=== PATIENT | female | born 1965 | race Caucasian/White ===

== ENCOUNTER 2020-08-02 08:40 | Inpatient (IN) ==
[2020-08-02] MEDS ORDERED: Orphenadrine 60 MG/2 ML VIAL IVP ONE (08:59)
[2020-08-02] MEDS ORDERED: Morphine Sulfate 2 MG/ML SYRINGE IVP ONE (08:59)
[2020-08-02 09:11] LABS: Basophils % 0.2 %; Hematocrit 56.7 % (35.3-44.9); Hemoglobin 18.7 g/dL (11.5-15.4); Immature Granulocytes % 0.6 % (0-4); Lymphocytes # 0.4 K/mcL (0.6-4.6); Lymphocytes % 8.4 %; Mean Corpuscular Hemoglobin 31.1 pg (28.0-33.3); Mean Corpuscular Volume 94.2 fL (83.0-100.0); Mean Platelet Volume 10.2 fL (9.4-12.4); Monocytes % 0.6 %; Neutrophils # 4.3 K/mcL (1.6-8.9); Platelet Count 181 K/mcL (140-400); Red Blood Count 6.02 M/mcL (3.82-4.97); Red Cell Distribution Width 12.6 % (11.5-14.5); Segmented Neutrophils % 90.2 %; White Blood Count 4.8 K/mcL (4.3-11.1)
[2020-08-02 09:18] LABS: Prothrombin Time 12.1 Seconds (9.4-12.1)
[2020-08-02 09:21] LABS: Activated Partial Thrombo Time 24.6 Seconds (26.0-36.0)
[2020-08-02] MEDS ORDERED: Isovue-370 500 ML BOTTLE IVP ONE (09:31)
[2020-08-02 09:32] LABS: Alanine Aminotransferase 11 Units/L (7-52); Albumin 3.9 g/dL (3.5-5.7); Albumin/Globulin Ratio 1.6 (1.1-2.2); Alkaline Phosphatase 78 Units/L (34-104); Aspartate Amino Transferase 15 Units/L (13-39); BUN/Creatinine Ratio 24 (6-26); Bilirubin,Total 0.8 mg/dL (0.3-1.0); Blood Urea Nitrogen 21 mg/dL (6-20); Calcium 9.2 mg/dL (8.6-10.3); Carbon Dioxide 27 mEq/L (23-29); Chloride 106 mEq/L (98-107); Globulin 2.4 g/dL (2.4-3.5); Glucose 207 mg/dL (70-105); Osmolality,Calculated 299 (280-300); Potassium 4.2 mEq/L (3.5-5.1); Sodium 140 mEq/L (136-145); Total Protein 6.3 g/dL (6.4-8.9); Troponin I < 0.03 ng/mL (< 0.04); eGFR For African Americans > 60 (> 60); eGFR For Non-African Americans > 60 (> 60)
[2020-08-02] MEDS ORDERED: Azithromycin 500 MG in 0.9 % Sodium Chloride 250 ML IVPB ONE (10:23)
[2020-08-02] MEDS ORDERED: cefTRIAXone 1,000 MG in Water for inj. (sterile) 10 ML IVP ONE (10:23)
[2020-08-02] MEDS ORDERED: Ondansetron 4 MG/2 ML VIAL IVP PRN (11:13)
[2020-08-02] MEDS ORDERED: Naloxone 0.4 MG/ML INJ IVP PRN (11:13)
[2020-08-02] MEDS ORDERED: *HR* Labetalol 20 MG/4 ML SYRINGE IVP PRN (11:15)
[2020-08-02] MEDS ORDERED: Ipratropium/Albuterol Neb 3 ML IH PRN (11:15)
[2020-08-02] MEDS: traZODone 50 MG TABLET PO SCH (20:27)
[2020-08-02] MEDS: tiZANidine 4 MG TABLET PO SCH (20:27)
[2020-08-02] MEDS ORDERED: ARIPiprazole 2 MG TABLET PO SCH (21:00)
[2020-08-03 02:36] LABS: Basophils # 0.1 K/mcL (0.0-0.2); Basophils % 0.7 %; Eosinophils # 0.4 K/mcL (0.0-0.6); Eosinophils % 4.1 %; Hematocrit 46.7 % (35.3-44.9); Immature Granulocytes % 0.5 % (0-4); Lymphocytes # 1.7 K/mcL (0.6-4.6); Lymphocytes % 19.1 %; Mean Corpuscular HGB Conc 33.2 g/dL (31.6-35.5); Mean Corpuscular Hemoglobin 31.3 pg (28.0-33.3); Mean Corpuscular Volume 94.3 fL (83.0-100.0); Mean Platelet Volume 10.6 fL (9.4-12.4); Monocytes # 0.6 K/mcL (0.0-1.3); Monocytes % 6.3 %; Neutrophils # 6.1 K/mcL (1.6-8.9); Platelet Count 174 K/mcL (140-400); Red Blood Count 4.95 M/mcL (3.82-4.97); Red Cell Distribution Width 12.9 % (11.5-14.5); Segmented Neutrophils % 69.3 %
[2020-08-03 02:38] LABS: Hemoglobin 15.5 g/dL (11.5-15.4); White Blood Count 8.8 K/mcL (4.3-11.1)
[2020-08-03 03:11] LABS: BUN/Creatinine Ratio 29 (6-26); Blood Urea Nitrogen 22 mg/dL (6-20); Calcium 8.5 mg/dL (8.6-10.3); Carbon Dioxide 28 mEq/L (23-29); Chloride 105 mEq/L (98-107); Glucose 111 mg/dL (70-105); Magnesium 2.1 mg/dL (1.6-2.6); Osmolality,Calculated 290 (280-300); Potassium 3.5 mEq/L (3.5-5.1); Sodium 138 mEq/L (136-145); eGFR For African Americans > 60 (> 60); eGFR For Non-African Americans > 60 (> 60)
[2020-08-03] MEDS: *HR* Enoxaparin 40 MG/0.4 ML SYRINGE SQ SCH (05:43)
[2020-08-03] MEDS: Levothyroxine 25 MCG TABLET PO SCH (05:43)
[2020-08-03] MEDS: hydroCHLOROthiazide 25 MG TABLET PO SCH (09:40)
[2020-08-03] MEDS: Aspirin Enteric Coated 81 MG Tablet PO SCH (09:41)
[2020-08-03] MEDS: tiZANidine 4 MG TABLET PO SCH (09:41)
[2020-08-03] MEDS: Azithromycin 500 MG in 0.9 % Sodium Chloride 250 ML IVPB SCH (09:42)
[2020-08-03] MEDS: cefTRIAXone 1,000 MG in 0.9 % Sodium Chloride Mini Bag 100 ML IVP SCH (09:43)
[2020-08-03] MEDS: ARIPiprazole 5 MG TABLET PO SCH (09:53)
[2020-08-03] MEDS: atenoloL 50 MG TABLET PO SCH (09:53)
[2020-08-03] MEDS ORDERED: *HR* HYDROcodone/Acet 5/325 mg TABLET PO PRN (13:23)
[2020-08-03] MEDS ORDERED: tiZANidine 4 MG TABLET PO PRN (14:30)
[2020-08-03] MEDS: traZODone 50 MG TABLET PO SCH (20:35)
[2020-08-03] MEDS ORDERED: Isovue-370 500 ML BOTTLE IVP ONE (23:11)
[2020-08-04] MEDS: Levothyroxine 25 MCG TABLET PO SCH (04:42)
[2020-08-04] MEDS: *HR* Enoxaparin 40 MG/0.4 ML SYRINGE SQ SCH (04:43)
[2020-08-04 09:14] LABS: Basophils % 0.3 %; Eosinophils # 0.3 K/mcL (0.0-0.6); Eosinophils % 4.8 %; Hematocrit 53.8 % (35.3-44.9); Immature Granulocytes % 0.3 % (0-4); Lymphocytes # 1.2 K/mcL (0.6-4.6); Lymphocytes % 19.9 %; Mean Corpuscular HGB Conc 33.1 g/dL (31.6-35.5); Mean Corpuscular Hemoglobin 30.5 pg (28.0-33.3); Mean Corpuscular Volume 92.3 fL (83.0-100.0); Mean Platelet Volume 10.7 fL (9.4-12.4); Monocytes # 0.4 K/mcL (0.0-1.3); Neutrophils # 4.1 K/mcL (1.6-8.9); Platelet Count 187 K/mcL (140-400); Red Blood Count 5.83 M/mcL (3.82-4.97); Red Cell Distribution Width 12.9 % (11.5-14.5); Segmented Neutrophils % 68.7 %
[2020-08-04 09:20] LABS: Hemoglobin 17.8 g/dL (11.5-15.4)
[2020-08-04] MEDS: ARIPiprazole 5 MG TABLET PO SCH (09:25)
[2020-08-04] MEDS: hydroCHLOROthiazide 25 MG TABLET PO SCH (09:25)
[2020-08-04] MEDS: atenoloL 50 MG TABLET PO SCH (09:25)
[2020-08-04] MEDS: Aspirin Enteric Coated 81 MG Tablet PO SCH (09:25)
[2020-08-04] MEDS: Azithromycin 500 MG in 0.9 % Sodium Chloride 250 ML IVPB SCH (09:26)
[2020-08-04] MEDS: cefTRIAXone 1,000 MG in 0.9 % Sodium Chloride Mini Bag 100 ML IVP SCH (09:26)
[2020-08-04 09:32] LABS: BUN/Creatinine Ratio 28 (6-26); Blood Urea Nitrogen 22 mg/dL (6-20); Calcium 9.7 mg/dL (8.6-10.3); Carbon Dioxide 28 mEq/L (23-29); Chloride 103 mEq/L (98-107); Glucose 122 mg/dL (70-105); Magnesium 2.2 mg/dL (1.6-2.6); Osmolality,Calculated 293 (280-300); Potassium 3.8 mEq/L (3.5-5.1); Sodium 139 mEq/L (136-145); eGFR For African Americans > 60 (> 60); eGFR For Non-African Americans > 60 (> 60)
[2020-08-04 09:45] LABS: Thyroid Stimulating Hormone 3.366 mcIU/mL (0.340-5.600)
[2020-08-04 11:09] LABS: Estimated Average Glucose 166 mg/dl
[2020-08-05 01:06] LABS: Basophils # 0.1 K/mcL (0.0-0.2); Basophils % 0.9 %; Eosinophils # 0.3 K/mcL (0.0-0.6); Eosinophils % 5.6 %; Hematocrit 49.5 % (35.3-44.9); Hemoglobin 16.5 g/dL (11.5-15.4); Immature Granulocytes % 0.4 % (0-4); Lymphocytes # 1.5 K/mcL (0.6-4.6); Mean Corpuscular HGB Conc 33.3 g/dL (31.6-35.5); Mean Corpuscular Hemoglobin 31.4 pg (28.0-33.3); Mean Corpuscular Volume 94.1 fL (83.0-100.0); Mean Platelet Volume 10.3 fL (9.4-12.4); Monocytes # 0.6 K/mcL (0.0-1.3); Monocytes % 9.8 %; Neutrophils # 3.3 K/mcL (1.6-8.9); Platelet Count 159 K/mcL (140-400); Red Blood Count 5.26 M/mcL (3.82-4.97); Red Cell Distribution Width 12.7 % (11.5-14.5); Segmented Neutrophils % 57.3 %; White Blood Count 5.7 K/mcL (4.3-11.1)
[2020-08-05 01:21] LABS: BUN/Creatinine Ratio 39 (6-26); Blood Urea Nitrogen 26 mg/dL (6-20); Calcium 9.2 mg/dL (8.6-10.3); Carbon Dioxide 27 mEq/L (23-29); Chloride 106 mEq/L (98-107); Glucose 142 mg/dL (70-105); Magnesium 2.1 mg/dL (1.6-2.6); Osmolality,Calculated 295 (280-300); Potassium 3.6 mEq/L (3.5-5.1); Sodium 139 mEq/L (136-145); eGFR For African Americans > 60 (> 60); eGFR For Non-African Americans > 60 (> 60)
[2020-08-05] MEDS: traZODone 50 MG TABLET PO SCH (03:31)
[2020-08-05] MEDS: Levothyroxine 25 MCG TABLET PO SCH (06:37)
[2020-08-05] MEDS: *HR* Enoxaparin 40 MG/0.4 ML SYRINGE SQ SCH (06:37)
[2020-08-05 07:13] VITALS: BP 100/62
[2020-08-05] MEDS: Aspirin Enteric Coated 81 MG Tablet PO SCH (08:02)
[2020-08-05] MEDS: ARIPiprazole 5 MG TABLET PO SCH (08:02)
[2020-08-05] MEDS: Azithromycin 500 MG in 0.9 % Sodium Chloride 250 ML IVPB SCH (08:03)
[2020-08-05] MEDS: atenoloL 50 MG TABLET PO SCH (08:06)
[2020-08-05] MEDS: hydroCHLOROthiazide 25 MG TABLET PO SCH (08:10)
[2020-08-05] MEDS: cefTRIAXone 1,000 MG in 0.9 % Sodium Chloride Mini Bag 100 ML IVP SCH (09:34)
== END 2020-08-05 11:04 | disposition home or self-care (01) | DRG 193 ==
LOC: 2ANU 08:40 → EMEROOARM 08:40 → SUATTDRO 11:42 → 2ANU 12:28
PROVIDERS: ADMIT Internal Medicine; ATTEND Pharmacist

== ENCOUNTER 2020-12-10 18:56 | Observation (INO) ==
[2020-12-10] MEDS ORDERED: Isovue-370 500 ML BOTTLE IVP ONE (19:25)
[2020-12-10 19:27] LABS: Basophils % 0.9 %; Eosinophils % 0.2 %; Hemoglobin 21.2 g/dL (11.5-15.4); Immature Granulocytes % 0.2 % (0-4); Lymphocytes # 0.6 K/mcL (0.6-4.6); Lymphocytes % 12.8 %; Mean Corpuscular HGB Conc 33.6 g/dL (31.6-35.5); Mean Corpuscular Hemoglobin 30.8 pg (28.0-33.3); Mean Corpuscular Volume 91.7 fL (83.0-100.0); Mean Platelet Volume 10.1 fL (9.4-12.4); Monocytes # 0.1 K/mcL (0.0-1.3); Monocytes % 1.1 %; Neutrophils # 3.9 K/mcL (1.6-8.9); Nucleated Red Blood Cells 0.6 /100 WBC (0); Platelet Count 170 K/mcL (140-400); Red Blood Count 6.88 M/mcL (3.82-4.97); Red Cell Distribution Width 12.4 % (11.5-14.5); Segmented Neutrophils % 84.8 %; White Blood Count 4.6 K/mcL (4.3-11.1)
[2020-12-10 19:29] LABS: Hematocrit 63.1 % (35.3-44.9)
[2020-12-10 19:51] LABS: Calcium 9.2 mg/dL (8.6-10.3); Potassium 3.9 mEq/L (3.5-5.1); Troponin I 0.04 ng/mL (< 0.04)
[2020-12-10] MEDS ORDERED: Aspirin 325 MG TABLET PO ONE (21:17)
[2020-12-10] MEDS ORDERED: 0.9 % Sodium Chloride 1,000 ML IVC ONE (21:19)
[2020-12-10 22:07] LABS: INR 1.1; Prothrombin Time 12.2 Seconds (9.4-12.1)
[2020-12-10 22:09] LABS: Activated Partial Thrombo Time 26.4 Seconds (26.0-36.0)
[2020-12-10 22:21] LABS: Potassium,Urine 88.3 mEq/L; Protein/Creatinine Ratio,Urine 0.23 mg/mg (0.00-0.20); Sodium, Urine 24.9 mEq/L
[2020-12-10 22:26] LABS: Bilirubin,Urine Negative (Negative); Blood,Urine Trace (Negative); Clarity,Urine Clear (Clear); Color,Urine Yellow (Yellow); Glucose,Urine (UA) 50 mg/dL (Normal); Ketones,Urine Negative (Negative); Leukocyte Esterase,Urine Negative (Negative); Mucus,Urine Few per lpf (None-Few); Nitrite,Urine Negative (Negative); Protein,Urine 30 mg/dL (Neg-Trace); Specific Gravity,Urine > 1.030 (1.010-1.025); Squamous Epithelial Cell,Urine Few per hpf (None-Few); Urobilinogen,Urine Normal (Normal); WBC,Urine 0-3 per hpf (0-3)
[2020-12-10] MEDS ORDERED: Naloxone 0.4 MG/ML INJ IVP PRN (22:38)
[2020-12-10] MEDS ORDERED: D5% in Water 1,000 ML IVC PRN (22:38)
[2020-12-10] MEDS ORDERED: Acetaminophen 325 MG TABLET PO PRN (22:38)
[2020-12-10] MEDS ORDERED: Dextrose Gel 15 GM/37.5 ML TUBE PO PRN ×2 (22:38)
[2020-12-10] MEDS ORDERED: *HR* Dextrose 50 % in Water (Vial) 50 ML VIAL IVP PRN (22:38)
[2020-12-10] MEDS ORDERED: Ondansetron 4 MG/2 ML VIAL IVP PRN (22:38)
[2020-12-10 22:40] LABS: Adenovirus Not Detected (Not Detect); Bordetella Pertussis Not Detected (Not Detect); Chlamydophila pneumoniae Not Detected (Not Detect); Coronavirus 229E Not Detected (Not Detect); Coronavirus HKU1 Not Detected (Not Detect); Coronavirus NL63 Not Detected (Not Detect); Coronavirus OC43 Not Detected (Not Detect); Human Metapneumovirus Not Detected (Not Detect); Human Rhinovirus/Enterovirus Not Detected (Not Detect); Influenza A Subtype 2009 H1 Not Detected (Not Detect); Influenza B Not Detected (Not Detect); Mycoplasma pneumoniae Not Detected (Not Detect); Parainfluenza Virus 1 Not Detected (Not Detect); Parainfluenza Virus 2 Not Detected (Not Detect); Parainfluenza Virus 3 Not Detected (Not Detect); Parainfluenza Virus 4 Not Detected (Not Detect); Respiratory Syncytial Virus Not Detected (Not Detect); SARS-CoV-2 Not Detected (Not Detect)
[2020-12-10] MEDS ORDERED: Perflutren Lipid Microsphere 1.3 ML in 0.9 % Sodium Chloride 8.7 ML IVP PRN (22:40)
[2020-12-10 22:44] LABS: Albumin 3.7 g/dL (3.5-5.7); Albumin/Globulin Ratio 1.4 (1.1-2.2); Bilirubin,Direct 0.1 mg/dL (0.0-0.2); Bilirubin,Indirect 0.3 mg/dL (0.0-1.0); Bilirubin,Total 0.4 mg/dL (0.3-1.0); Globulin 2.7 g/dL (2.4-3.5); Total Protein 6.4 g/dL (6.4-8.9)
[2020-12-10] MEDS ORDERED: tiZANidine 4 MG TABLET PO PRN (22:52)
[2020-12-10] MEDS ORDERED: 0.9 % Sodium Chloride 1,000 ML IVC SCH (23:15)
[2020-12-10 23:33] LABS: Magnesium 1.8 mg/dL (1.6-2.6); Phosphorous 3.5 mg/dL (2.7-4.5)
[2020-12-11 00:27] LABS: Hematocrit 52.7 % (35.3-44.9); Mean Corpuscular HGB Conc 34.2 g/dL (31.6-35.5); Mean Corpuscular Hemoglobin 32.3 pg (28.0-33.3); Mean Corpuscular Volume 94.4 fL (83.0-100.0); Mean Platelet Volume 10.6 fL (9.4-12.4); Platelet Count 147 K/mcL (140-400); Red Blood Count 5.58 M/mcL (3.82-4.97); Red Cell Distribution Width 12.2 % (11.5-14.5); White Blood Count 10.7 K/mcL (4.3-11.1)
[2020-12-11 00:44] LABS: BUN/Creatinine Ratio 27 (6-26); Blood Urea Nitrogen 27 mg/dL (6-20); Calcium 8.2 mg/dL (8.6-10.3); Carbon Dioxide 18 mEq/L (23-29); Chloride 106 mEq/L (98-107); Cholesterol 208 mg/dL (< 200); Glucose 389 mg/dL (70-105); HDL Cholesterol 26 mg/dL (40-59); LDL Cholesterol,Calculated 108 mg/dL (< 100); Osmolality,Calculated 303 (280-300); Potassium 3.6 mEq/L (3.5-5.1); Sodium 136 mEq/L (136-145); Triglycerides 369 mg/dL (< 150); eGFR For African Americans > 60 (> 60); eGFR For Non-African Americans 58 (> 60)
[2020-12-11] MEDS: ARIPiprazole 5 MG TABLET PO SCH ×2 (00:50→22:11)
[2020-12-11] MEDS: clonazePAM 0.5 MG TABLET PO PRN ×2 (00:50→22:11)
[2020-12-11] MEDS: *HR* Heparin 5,000 UNIT/ML VIAL SQ SCH ×4 (00:52→22:10)
[2020-12-11 00:55] LABS: Lymphocytes # 1.3 K/mcL (0.6-4.6); Monocytes # 0.9 K/mcL (0.0-1.3); Neutrophils # 8.1 K/mcL (1.6-8.9); Platelet Estimate Normal (Normal); Reactive Lymphocytes Present (Not Present); Toxic Granulation Present (Not Present)
[2020-12-11] MEDS: Insulin LISPRO 300 UNITS/3 ML VIAL SUBQ SCH ×5 (00:55→22:10)
[2020-12-11 06:18] LABS: Immature Reticulocyte % 8.2 % (11.0-38.0); Retculocyte # 0.08 M/mcL (0.05-0.10); Reticulocyte % 1.5 % (1.6-2.8)
[2020-12-11] MEDS: Levothyroxine 25 MCG TABLET PO SCH (06:38)
[2020-12-11] MEDS: levoFLOXacin 750 MG/150 ML 750 MG/150 ML BAG IVPB SCH (06:43)
[2020-12-11] MEDS: Aspirin Enteric Coated 81 MG Tablet PO SCH (07:45)
[2020-12-11] MEDS: atenoloL 50 MG TABLET PO SCH (08:46)
[2020-12-11 09:00] LABS: Estimated Average Glucose 183 mg/dl
[2020-12-11] MEDS ORDERED: *HR* Propofol 200 MG/20 ML VIAL IVP ONE (11:28)
[2020-12-11] MEDS ORDERED: Ondansetron 4 MG/2 ML VIAL IVP PRN (12:04)
[2020-12-11] MEDS ORDERED: *HR* FentaNYL (PF) 100 MCG/2 ML VIAL IVP PRN (12:04)
[2020-12-11] MEDS ORDERED: Ondansetron 4 MG/2 ML VIAL ONE (12:14)
[2020-12-11] MEDS ORDERED: Lidocaine -MPF 4% 5 ML AMPUL ONE (12:14)
[2020-12-11] MEDS ORDERED: Dexamethasone 4 MG/ML VIAL ONE (12:14)
[2020-12-11] MEDS ORDERED: *HR* Succinylcholine 200 MG/10 ML VIAL IVP ONE (12:14)
[2020-12-11] MEDS: Ringers Solution, Lactated 1,000 ML IVC SCH (13:00)
[2020-12-12 03:23] LABS: Hematocrit 48.5 % (35.3-44.9); Hemoglobin 16.6 g/dL (11.5-15.4); Immature Platelets 4.8 % (1.1-6.1); Mean Corpuscular HGB Conc 34.2 g/dL (31.6-35.5); Mean Corpuscular Hemoglobin 31.9 pg (28.0-33.3); Mean Corpuscular Volume 93.1 fL (83.0-100.0); Mean Platelet Volume 10.6 fL (9.4-12.4); Red Blood Count 5.21 M/mcL (3.82-4.97); Red Cell Distribution Width 12.1 % (11.5-14.5); White Blood Count 9.1 K/mcL (4.3-11.1)
[2020-12-12 03:42] LABS: BUN/Creatinine Ratio 30 (6-26); Blood Urea Nitrogen 20 mg/dL (6-20); Calcium 8.7 mg/dL (8.6-10.3); Carbon Dioxide 23 mEq/L (23-29); Chloride 106 mEq/L (98-107); Glucose 207 mg/dL (70-105); Osmolality,Calculated 291 (280-300); Potassium 4.2 mEq/L (3.5-5.1); Sodium 136 mEq/L (136-145); eGFR For African Americans > 60 (> 60); eGFR For Non-African Americans > 60 (> 60)
[2020-12-12] MEDS: levoFLOXacin 750 MG/150 ML 750 MG/150 ML BAG IVPB SCH (05:59)
[2020-12-12] MEDS: Levothyroxine 25 MCG TABLET PO SCH (06:00)
[2020-12-12] MEDS: *HR* Heparin 5,000 UNIT/ML VIAL SQ SCH ×2 (06:01→15:00)
[2020-12-12] MEDS: Insulin LISPRO 300 UNITS/3 ML VIAL SUBQ SCH ×2 (07:59→12:27)
[2020-12-12] MEDS: Aspirin Enteric Coated 81 MG Tablet PO SCH (07:59)
[2020-12-12] MEDS: atenoloL 50 MG TABLET PO SCH (08:08)
[2020-12-12 11:51] VITALS: BP 111/68
[2020-12-12] MEDS: Ringers Solution, Lactated 1,000 ML IVC SCH (12:24)
[2020-12-12 12:40] LABS: Source of Body Fluid rt.middle lobe bal
[2020-12-12 14:55] LABS: Appearance of Body Fluid Clear (Clear); Volume of Body Fluid 9 mL
[2020-12-12 14:56] LABS: Appearance of Body Fluid Clear (Clear); Source of Body Fluid bal lt.upper lobe ba; Volume of Body Fluid 10 mL
[2020-12-13] MEDS ORDERED: levoFLOXacin 750 MG TABLET PO SCH (09:00)
[2020-12-14 00:35] LABS: A.galactomannan Ag Index 0.03
[2020-12-14 07:20] LABS: Immunoglobulin A 97 mg/dL (68-408); Immunoglobulin G 497 mg/dL (768-1632); Immunoglobulin M 174 mg/dL (35-263)
[2020-12-14 07:28] LABS: ANA IgG by ELISA NONE DETECTED (None Detected)
[2020-12-14 09:35] LABS: Influenza A PCR Body Fluid NOT DETECTED; Influenza B PCR Body Fluid NOT DETECTED; RVP Body Fluid Source BAL
[2020-12-14 12:57] LABS: RSV PCR Body Fluid NOT DETECTED
[2020-12-14 12:57] LABS: Serine Protease-3 Antibody 2 AU/mL (0-19)
[2020-12-15 08:15] LABS: HSV Source BAL
[2020-12-15 14:41] LABS: BCR-ABL1 Specimen Source NOT SPECIFIED
[2020-12-16 10:24] LABS: JAK2 (V617F) Mutation by PCR NOT DETECTED
[2020-12-17 10:44] LABS: HSV Source BAL
[2020-12-18 09:33] LABS: MPL codon 515 Mut-PeripheralBl NOT DETECTED
== END 2020-12-12 15:42 | disposition home or self-care (01) ==
LOC: EMEROOARM 18:56 → 2NENU 18:56 → SUATTDRO 23:03 → 2NENU 23:26
PROVIDERS: ADMIT Internal Medicine; ATTEND Student in an Organized Health Care Education/Training Program

== ENCOUNTER 2021-03-13 11:34 | Inpatient (IN) ==
[2021-03-13] MEDS ORDERED: methylPREDNISolone 125 MG/2 ML VIAL IVP ONE (12:08)
[2021-03-13] MEDS ORDERED: cefTRIAXone 1,000 MG in Water for inj. (sterile) 10 ML IVP ONE (12:08)
[2021-03-13] MEDS ORDERED: Ipratropium/Albuterol Neb 3 ML IH ONE (12:08)
[2021-03-13] MEDS ORDERED: Azithromycin 500 MG in 0.9 % Sodium Chloride 250 ML IVPB ONE (12:08)
[2021-03-13] MEDS ORDERED: 0.9 % Sodium Chloride 1,000 ML IVC ONE ×2 (12:08→13:30)
[2021-03-13 12:35] LABS: Hemoglobin 20.4 g/dL (11.5-15.4); Mean Corpuscular HGB Conc 33.5 g/dL (31.6-35.5); Mean Corpuscular Hemoglobin 31.3 pg (28.0-33.3); Mean Corpuscular Volume 93.4 fL (83.0-100.0); Mean Platelet Volume 10.1 fL (9.4-12.4); Monocytes # 0.1 K/mcL (0.0-1.3); Nucleated Red Blood Cells 0.6 /100 WBC (0); Platelet Count 167 K/mcL (140-400); Red Blood Count 6.52 M/mcL (3.82-4.97); Red Cell Distribution Width 12.4 % (11.5-14.5); White Blood Count 3.1 K/mcL (4.3-11.1)
[2021-03-13 12:39] LABS: Hematocrit 60.9 % (35.3-44.9)
[2021-03-13 13:08] LABS: Alanine Aminotransferase 11 Units/L (7-52); Albumin 3.8 g/dL (3.5-5.7); Albumin/Globulin Ratio 1.5 (1.1-2.2); Alkaline Phosphatase 91 Units/L (34-104); Aspartate Amino Transferase 22 Units/L (13-39); BUN/Creatinine Ratio 18 (6-26); Bilirubin,Indirect 0.6 mg/dL (0.0-1.0); Bilirubin,Total 0.6 mg/dL (0.3-1.0); Blood Urea Nitrogen 18 mg/dL (6-20); Calcium 9.2 mg/dL (8.6-10.3); Carbon Dioxide 25 mEq/L (23-29); Chloride 105 mEq/L (98-107); Globulin 2.6 g/dL (2.4-3.5); Glucose 207 mg/dL (70-105); Osmolality,Calculated 298 (280-300); Potassium 3.7 mEq/L (3.5-5.1); Sodium 140 mEq/L (136-145); Total Protein 6.4 g/dL (6.4-8.9); Troponin I < 0.03 ng/mL (< 0.04); eGFR For African Americans > 60 (> 60); eGFR For Non-African Americans 59 (> 60)
[2021-03-13 13:11] LABS: Lymphocytes # 1.1 K/mcL (0.6-4.6); Neutrophils # 1.9 K/mcL (1.6-8.9); Platelet Estimate Normal (Normal); Reactive Lymphocytes Present (Not Present)
[2021-03-13 14:22] LABS: Lipase 17 Units/L (11-82)
[2021-03-13 14:32] LABS: INR 1.1
[2021-03-13 14:50] LABS: Activated Partial Thrombo Time 29.2 Seconds (26.0-36.0)
[2021-03-13] MEDS ORDERED: Isovue-370 500 ML BOTTLE IVP ONE (15:01)
[2021-03-13] MEDS ORDERED: Cefepime HCl 2,000 MG in 0.9 % Sodium Chloride Mini Bag 100 ML IVPB STA (20:28)
[2021-03-13] MEDS ORDERED: Azithromycin 500 MG in D5% in Water 250 ML IVPB ONE (20:30)
[2021-03-13] MEDS ORDERED: Naloxone 0.4 MG/ML INJ IVP PRN (20:46)
[2021-03-13] MEDS ORDERED: Acetaminophen 325 MG TABLET PO PRN (20:46)
[2021-03-13] MEDS ORDERED: Ondansetron 4 MG/2 ML VIAL IVP PRN (20:46)
[2021-03-13] MEDS ORDERED: Ipratropium/Albuterol Neb 3 ML IH PRN (20:49)
[2021-03-13 22:02] LABS: Adenovirus Not Detected (Not Detect); Bordetella Pertussis Not Detected (Not Detect); Chlamydophila pneumoniae Not Detected (Not Detect); Coronavirus 229E Not Detected (Not Detect); Coronavirus HKU1 Not Detected (Not Detect); Coronavirus NL63 Not Detected (Not Detect); Coronavirus OC43 Not Detected (Not Detect); Human Metapneumovirus Not Detected (Not Detect); Human Rhinovirus/Enterovirus Not Detected (Not Detect); Influenza A Subtype 2009 H1 Not Detected (Not Detect); Influenza B Not Detected (Not Detect); Mycoplasma pneumoniae Not Detected (Not Detect); Parainfluenza Virus 1 Not Detected (Not Detect); Parainfluenza Virus 2 Not Detected (Not Detect); Parainfluenza Virus 3 Not Detected (Not Detect); Parainfluenza Virus 4 Not Detected (Not Detect); Respiratory Syncytial Virus Not Detected (Not Detect); SARS-CoV-2 Not Detected (Not Detect)
[2021-03-13] MEDS: Cefepime HCl 2,000 MG in Water for inj. (sterile) 20 ML IVP SCH (23:39)
[2021-03-14 03:44] LABS: Hematocrit 48.4 % (35.3-44.9); Immature Reticulocyte % 10.9 % (11.0-38.0); Mean Corpuscular HGB Conc 34.7 g/dL (31.6-35.5); Mean Corpuscular Hemoglobin 32.2 pg (28.0-33.3); Mean Corpuscular Volume 92.9 fL (83.0-100.0); Platelet Count 166 K/mcL (140-400); Red Blood Count 5.21 M/mcL (3.82-4.97); Red Cell Distribution Width 12.5 % (11.5-14.5); Retculocyte # 0.08 M/mcL (0.05-0.10); Reticulocyte % 1.6 % (1.6-2.8)
[2021-03-14 03:46] LABS: Hemoglobin 16.8 g/dL (11.5-15.4); White Blood Count 8.3 K/mcL (4.3-11.1)
[2021-03-14 03:55] LABS: BUN/Creatinine Ratio 22 (6-26); Blood Urea Nitrogen 19 mg/dL (6-20); Calcium 8.7 mg/dL (8.6-10.3); Carbon Dioxide 24 mEq/L (23-29); Chloride 106 mEq/L (98-107); Glucose 291 mg/dL (70-105); Magnesium 1.8 mg/dL (1.6-2.6); Osmolality,Calculated 299 (280-300); Sodium 138 mEq/L (136-145); eGFR For African Americans > 60 (> 60); eGFR For Non-African Americans > 60 (> 60)
[2021-03-14 03:56] LABS: % Iron Saturation 13 % (15-50); Iron 40 mcg/dL (50-170); Lactate Dehydrogenase 205 Units/L (140-271); Transferrin 214 mg/dL (203-362)
[2021-03-14 04:11] LABS: Monocytes # 0.2 K/mcL (0.0-1.3); Platelet Estimate Normal (Normal); Reactive Lymphocytes Present (Not Present)
[2021-03-14 04:15] LABS: Ferritin 322 ng/mL (10-120)
[2021-03-14] MEDS ORDERED: Dextrose Gel 15 GM/37.5 ML TUBE PO PRN ×2 (08:14)
[2021-03-14] MEDS ORDERED: D5% in Water 1,000 ML IVC PRN (08:14)
[2021-03-14] MEDS ORDERED: *HR* Dextrose 50 % in Water (Vial) 50 ML VIAL IVP PRN (08:14)
[2021-03-14] MEDS ORDERED: *HR* Enoxaparin 30 MG/0.3 ML SYRINGE SQ SCH (09:00)
[2021-03-14] MEDS ORDERED: cefTRIAXone 1,000 MG in 0.9 % Sodium Chloride Mini Bag 100 ML IVPB SCH (09:00)
[2021-03-14] MEDS: Azithromycin 500 MG in 0.9 % Sodium Chloride 250 ML IVPB SCH (09:15)
[2021-03-14] MEDS: Cefepime HCl 2,000 MG in Water for inj. (sterile) 20 ML IVP SCH ×2 (09:17→15:51)
[2021-03-14] MEDS ORDERED: Lidocaine -MPF 4% 5 ML AMPUL ONE (10:32)
[2021-03-14] MEDS ORDERED: Lidocaine -MPF 2% 5 ML VIAL ONE (10:35)
[2021-03-14] MEDS ORDERED: *HR* FentaNYL (PF) 100 MCG/2 ML VIAL ONE (10:35)
[2021-03-14] MEDS ORDERED: *HR* Succinylcholine 200 MG/10 ML VIAL IVP ONE (10:36)
[2021-03-14] MEDS ORDERED: Ondansetron 4 MG/2 ML VIAL ONE (10:36)
[2021-03-14] MEDS ORDERED: *HR* HYDROcodone/Acet 5/325 mg TABLET PO PRN (10:57)
[2021-03-14] MEDS ORDERED: *HR* FentaNYL (PF) 100 MCG/2 ML VIAL IVP PRN (10:57)
[2021-03-14] MEDS ORDERED: Ondansetron 4 MG/2 ML VIAL IVP PRN (10:57)
[2021-03-14] MEDS ORDERED: *HR* Propofol 200 MG/20 ML VIAL IVP ONE ×3 (11:14→11:38)
[2021-03-14] MEDS ORDERED: *HR* Metoprolol 5 MG/5 ML VIAL IVP ONE (11:24)
[2021-03-14] MEDS ORDERED: *HR* EPINEPHrine 1 MG/10 ML SYRINGE INTRATRACH PRN (11:49)
[2021-03-14] MEDS ORDERED: *HR* EPINEPHrine 1 MG/10 ML SYRINGE ONE (11:58)
[2021-03-14] MEDS ORDERED: Insulin LISPRO 300 UNITS/3 ML VIAL SUBQ SCH (12:00)
[2021-03-14 14:48] LABS: Source of Body Fluid LEFT LOWER LOBE LUNG
[2021-03-14 15:47] LABS: Appearance of Body Fluid Clear (Clear); Volume of Body Fluid 11 mL
[2021-03-14] MEDS: MethylPREDNISolone 40 MG/ML VIAL IVP SCH (15:52)
[2021-03-14 15:54] LABS: Source of Body Fluid RIGHT LOWER LOBE LUN
[2021-03-14 15:59] LABS: Appearance of Body Fluid Cloudy (Clear)
[2021-03-14 16:00] LABS: Volume of Body Fluid 16 mL
[2021-03-14] MEDS: Insulin LISPRO 300 UNITS/3 ML VIAL SUBQ SCH ×2 (17:04→21:50)
[2021-03-14] MEDS ORDERED: *HR* Enoxaparin 40 MG/0.4 ML SYRINGE SQ SCH (18:00)
[2021-03-14] MEDS: clonazePAM 0.5 MG TABLET PO PRN (20:57)
[2021-03-14] MEDS: traZODone 50 MG TABLET PO PRN (20:58)
[2021-03-14] MEDS: tiZANidine 4 MG TABLET PO PRN (20:58)
[2021-03-14] MEDS: *HR* Enoxaparin 40 MG/0.4 ML SYRINGE SQ SCH (20:58)
[2021-03-14] MEDS: ARIPiprazole 5 MG TABLET PO SCH (20:58)
[2021-03-15] MEDS: Cefepime HCl 2,000 MG in Water for inj. (sterile) 20 ML IVP SCH ×4 (01:12→23:57)
[2021-03-15] MEDS: MethylPREDNISolone 40 MG/ML VIAL IVP SCH ×4 (01:12→23:58)
[2021-03-15] MEDS ORDERED: *HR* Enoxaparin 40 MG/0.4 ML SYRINGE SQ SCH (06:00)
[2021-03-15] MEDS: Levothyroxine 25 MCG TABLET PO SCH (06:02)
[2021-03-15] MEDS: *HR* Enoxaparin 40 MG/0.4 ML SYRINGE SQ SCH ×2 (07:56→22:05)
[2021-03-15] MEDS: Azithromycin 500 MG in 0.9 % Sodium Chloride 250 ML IVPB SCH (07:56)
[2021-03-15 07:57] LABS: Basophils % 0.1 %; Hematocrit 45.3 % (35.3-44.9); Immature Granulocytes % 0.6 % (0-4); Lymphocytes # 0.7 K/mcL (0.6-4.6); Lymphocytes % 7.2 %; Mean Corpuscular HGB Conc 33.3 g/dL (31.6-35.5); Mean Corpuscular Hemoglobin 31.3 pg (28.0-33.3); Monocytes # 0.3 K/mcL (0.0-1.3); Monocytes % 3.6 %; Neutrophils # 8.2 K/mcL (1.6-8.9); Platelet Count 158 K/mcL (140-400); Red Blood Count 4.82 M/mcL (3.82-4.97); Red Cell Distribution Width 12.2 % (11.5-14.5); Segmented Neutrophils % 88.5 %; White Blood Count 9.3 K/mcL (4.3-11.1)
[2021-03-15] MEDS: hydroCHLOROthiazide 25 MG TABLET PO SCH (07:57)
[2021-03-15] MEDS: Metoprolol XL (24 HR) Succ 25 MG TAB.ER.24H PO SCH (07:58)
[2021-03-15] MEDS: Aspirin Enteric Coated 81 MG Tablet PO SCH (07:58)
[2021-03-15] MEDS: Insulin LISPRO 300 UNITS/3 ML VIAL SUBQ SCH ×4 (08:02→22:07)
[2021-03-15 08:14] LABS: BUN/Creatinine Ratio 32 (6-26); Blood Urea Nitrogen 23 mg/dL (6-20); Carbon Dioxide 25 mEq/L (23-29); Chloride 105 mEq/L (98-107); Glucose 254 mg/dL (70-105); Magnesium 2.2 mg/dL (1.6-2.6); Osmolality,Calculated 296 (280-300); Phosphorous 2.7 mg/dL (2.7-4.5); Potassium 4.2 mEq/L (3.5-5.1); Sodium 137 mEq/L (136-145); eGFR For African Americans > 60 (> 60); eGFR For Non-African Americans > 60 (> 60)
[2021-03-15 08:34] LABS: Hemoglobin 15.1 g/dL (11.5-15.4)
[2021-03-15] MEDS: traZODone 50 MG TABLET PO PRN (22:04)
[2021-03-15] MEDS: clonazePAM 0.5 MG TABLET PO PRN (22:04)
[2021-03-15] MEDS: tiZANidine 4 MG TABLET PO PRN (22:05)
[2021-03-15] MEDS: ARIPiprazole 5 MG TABLET PO SCH (22:05)
[2021-03-15] MEDS: Insulin DETEMIR 100 UNIT/ML X5UNITS SUBQ SCH (22:06)
[2021-03-16] MEDS: Levothyroxine 25 MCG TABLET PO SCH (05:33)
[2021-03-16] MEDS ORDERED: predniSONE 20 MG TABLET PO SCH (09:00)
[2021-03-16] MEDS ORDERED: Azithromycin 250 MG TABLET PO SCH (09:00)
[2021-03-16 09:08] VITALS: BP 132/75
[2021-03-16] MEDS: Insulin LISPRO 300 UNITS/3 ML VIAL SUBQ SCH (09:08)
[2021-03-16] MEDS: Insulin DETEMIR 100 UNIT/ML X5UNITS SUBQ SCH (09:09)
[2021-03-16] MEDS: Aspirin Enteric Coated 81 MG Tablet PO SCH (09:10)
[2021-03-16] MEDS: hydroCHLOROthiazide 25 MG TABLET PO SCH (09:10)
[2021-03-16] MEDS: Metoprolol XL (24 HR) Succ 25 MG TAB.ER.24H PO SCH (09:11)
[2021-03-16] MEDS: *HR* Enoxaparin 40 MG/0.4 ML SYRINGE SQ SCH (09:13)
[2021-03-16] MEDS: Cefepime HCl 2,000 MG in Water for inj. (sterile) 20 ML IVP SCH (09:14)
[2021-03-16 09:45] LABS: BUN/Creatinine Ratio 35 (6-26); Blood Urea Nitrogen 26 mg/dL (6-20); Calcium 9.4 mg/dL (8.6-10.3); Carbon Dioxide 26 mEq/L (23-29); Chloride 102 mEq/L (98-107); Glucose 225 mg/dL (70-105); Magnesium 2.2 mg/dL (1.6-2.6); Osmolality,Calculated 296 (280-300); Phosphorous 3.3 mg/dL (2.7-4.5); Potassium 4.2 mEq/L (3.5-5.1); Sodium 137 mEq/L (136-145); eGFR For African Americans > 60 (> 60); eGFR For Non-African Americans > 60 (> 60)
[2021-03-17 08:39] LABS: ANA IgG by ELISA NONE DETECTED (None Detected)
[2021-03-17 09:48] LABS: Serine Protease-3 Antibody 5 AU/mL (0-19)
[2021-03-22 06:22] LABS: Beef IgE <0.10 kU/L (<=0.34); Feather Mix IgE NEGATIVE kU/L (Negative); Phoma betae IgE <0.10 kU/L (<=0.34); T. vulgaris 1 Ab Precipitin NONE DETECTED (None Detected)
== END 2021-03-16 12:27 | disposition home or self-care (01) | DRG 871 ==
LOC: 2NENU 11:34 → EMEROOARM 11:34 → SUATTDRO 22:08 → 2NENU 22:46
PROVIDERS: ADMIT Internal Medicine; ATTEND Internal Medicine

== ENCOUNTER 2022-06-14 08:42 | Inpatient (IN) ==
[2022-06-14] MEDS ORDERED: methylPREDNISolone 125 MG/2 ML VIAL IVP ONE (08:49)
[2022-06-14] MEDS ORDERED: Ipratropium/Albuterol Neb 3 ML IH ONE (08:51)
[2022-06-14] MEDS ORDERED: cefTRIAXone 1,000 MG in 0.9 % Sodium Chloride 10 ML IVP ONE (08:52)
[2022-06-14] MEDS ORDERED: Ipratropium/Albuterol Neb 3 ML ONE (08:52)
[2022-06-14 08:53] LABS: ABG Base Excess -5 mEq/L (-2 to 3); ABG Chloride 110 mEq/L (98-107); ABG Glucose 222 mg/dL (60-95); ABG HCO3 17 mEq/L (21-27); ABG Oxygen Saturation 97 % (95-98); ABG PCO2 25 mmHg (35-45); ABG PH 7.43 pH Units (7.32-7.45); ABG PO2 81 mmHg (85-104); ABG TCO2 18 mEq/L (20-26)
[2022-06-14 09:14] LABS: Basophils % 0.3 %; Lymphocytes # 0.3 K/mcL (0.6-4.6); Lymphocytes % 10.8 %; Mean Corpuscular HGB Conc 33.2 g/dL (31.6-35.5); Mean Corpuscular Hemoglobin 30.7 pg (28.0-33.3); Mean Corpuscular Volume 92.3 fL (83.0-100.0); Mean Platelet Volume 10.3 fL (9.4-12.4); Neutrophils # 2.6 K/mcL (1.6-8.9); Platelet Count 166 K/mcL (140-400); Red Blood Count 6.52 M/mcL (3.82-4.97); Red Cell Distribution Width 13.2 % (11.5-14.5); Segmented Neutrophils % 87.9 %
[2022-06-14 09:16] LABS: Hematocrit 60.2 % (35.3-44.9)
[2022-06-14 09:19] LABS: INR 1.1; Prothrombin Time 11.9 Seconds (9.4-12.1)
[2022-06-14 09:22] LABS: Activated Partial Thrombo Time 34.5 Seconds (26.0-36.0)
[2022-06-14 09:28] LABS: Alanine Aminotransferase 11 Units/L (7-52); Albumin 3.8 g/dL (3.5-5.7); Albumin/Globulin Ratio 1.6 (1.1-2.2); Alkaline Phosphatase 92 Units/L (34-104); Aspartate Amino Transferase 20 Units/L (13-39); BUN/Creatinine Ratio 22 (6-26); Bilirubin,Direct 0.1 mg/dL (0.0-0.2); Bilirubin,Indirect 0.4 mg/dL (0.0-1.0); Bilirubin,Total 0.5 mg/dL (0.3-1.0); Blood Urea Nitrogen 24 mg/dL (6-20); Calcium 9.3 mg/dL (8.6-10.3); Carbon Dioxide 25 mEq/L (23-29); Chloride 107 mEq/L (98-107); Globulin 2.4 g/dL (2.4-3.5); Glucose 221 mg/dL (70-105); Osmolality,Calculated 303 (280-300); Potassium 3.7 mEq/L (3.5-5.1); Sodium 141 mEq/L (136-145); Total Protein 6.2 g/dL (6.4-8.9); Troponin I < 0.03 ng/mL (< 0.04)
[2022-06-14 09:40] LABS: Thyroid Stimulating Hormone 2.778 mcIU/mL (0.340-5.600)
[2022-06-14 09:44] LABS: Platelet Estimate Normal (Normal)
[2022-06-14 10:21] LABS: Adenovirus Not Detected (Not Detect); Bordetella Pertussis Not Detected (Not Detect); Chlamydophila pneumoniae Not Detected (Not Detect); Coronavirus 229E Not Detected (Not Detect); Coronavirus HKU1 Not Detected (Not Detect); Coronavirus NL63 Not Detected (Not Detect); Coronavirus OC43 Not Detected (Not Detect); Human Metapneumovirus Not Detected (Not Detect); Human Rhinovirus/Enterovirus Not Detected (Not Detect); Influenza A Subtype 2009 H1 Not Detected (Not Detect); Influenza B Not Detected (Not Detect); Mycoplasma pneumoniae Not Detected (Not Detect); Parainfluenza Virus 1 Not Detected (Not Detect); Parainfluenza Virus 2 Not Detected (Not Detect); Parainfluenza Virus 3 Not Detected (Not Detect); Parainfluenza Virus 4 Not Detected (Not Detect); Respiratory Syncytial Virus Not Detected (Not Detect); SARS-CoV-2 Not Detected (Not Detect)
[2022-06-14] MEDS ORDERED: Azithromycin 500 MG in 0.9 % Sodium Chloride 250 ML IVPB ONE (10:25)
[2022-06-14] MEDS ORDERED: Iopamidol - 370 500 ML MLS IVP ONE (12:06)
[2022-06-14] MEDS ORDERED: Ipratropium Neb 0.5 MG NEBULIZER IH PRN (12:14)
[2022-06-14] MEDS ORDERED: levoFLOXacin 750 MG/150 ML 750 MG/150 ML BAG IVPB SCH (12:15)
[2022-06-14] MEDS ORDERED: Acetaminophen 325 MG TABLET PO PRN (12:21)
[2022-06-14] MEDS ORDERED: Dextrose Gel 15 GM/37.5 ML TUBE PO PRN ×2 (12:21)
[2022-06-14] MEDS ORDERED: D5% in Water 1,000 ML IVC PRN (12:21)
[2022-06-14] MEDS ORDERED: *HR* Dextrose 50 % in Water (Syg) 50 ML SYRINGE IVP PRN (12:21)
[2022-06-14] MEDS ORDERED: Naloxone 0.4 MG/ML INJ IVP PRN (12:21)
[2022-06-14] MEDS ORDERED: Ondansetron 4 MG/2 ML VIAL IVP PRN (12:21)
[2022-06-14] MEDS: Ipratropium/Albuterol Neb 3 ML IH SCH ×2 (13:57→15:25)
[2022-06-14] MEDS: Lactobacillus 1 EACH CAP.SPRINK PO SCH ×2 (14:12→20:53)
[2022-06-14] MEDS: Insulin LISPRO 300 UNITS/3 ML VIAL SUBQ SCH ×2 (17:08→20:54)
[2022-06-14] MEDS ORDERED: traZODone 50 MG TABLET PO PRN (20:47)
[2022-06-14] MEDS: clonazePAM 0.5 MG TABLET PO PRN (20:53)
[2022-06-14] MEDS: *HR* Heparin 5,000 UNIT/ML VIAL SQ SCH (20:53)
[2022-06-14] MEDS: tiZANidine 4 MG TABLET PO PRN (20:53)
[2022-06-14] MEDS ORDERED: Melatonin 3 MG TABLET PO PRN (21:00)
[2022-06-15] MEDS: *HR* Heparin 5,000 UNIT/ML VIAL SQ SCH ×3 (05:05→20:38)
[2022-06-15 08:38] LABS: Basophils % 0.1 %; Hematocrit 46.5 % (35.3-44.9); Immature Granulocytes % 0.5 % (0-4); Lymphocytes # 0.6 K/mcL (0.6-4.6); Lymphocytes % 5.6 %; Mean Corpuscular HGB Conc 33.5 g/dL (31.6-35.5); Mean Corpuscular Hemoglobin 30.4 pg (28.0-33.3); Mean Corpuscular Volume 90.6 fL (83.0-100.0); Mean Platelet Volume 10.4 fL (9.4-12.4); Monocytes # 0.7 K/mcL (0.0-1.3); Monocytes % 6.6 %; Platelet Count 162 K/mcL (140-400); Red Blood Count 5.13 M/mcL (3.82-4.97); Red Cell Distribution Width 13.3 % (11.5-14.5); Segmented Neutrophils % 87.2 %
[2022-06-15 08:49] LABS: Calcium 9.2 mg/dL (8.6-10.3); Potassium 3.5 mEq/L (3.5-5.1)
[2022-06-15 08:51] LABS: Hemoglobin 15.6 g/dL (11.5-15.4); Neutrophils # 9.2 K/mcL (1.6-8.9); White Blood Count 10.6 K/mcL (4.3-11.1)
[2022-06-15] MEDS: Lactobacillus 1 EACH CAP.SPRINK PO SCH ×2 (09:49→20:38)
[2022-06-15] MEDS: MethylPREDNISolone 40 MG/ML VIAL IVP SCH (09:49)
[2022-06-15] MEDS: cefTRIAXone 1,000 MG in 0.9 % Sodium Chloride Mini Bag 100 ML IVPB SCH (09:50)
[2022-06-15] MEDS: Azithromycin 500 MG in 0.9 % Sodium Chloride 250 ML IVPB SCH (09:51)
[2022-06-15] MEDS: Insulin LISPRO 300 UNITS/3 ML VIAL SUBQ SCH ×4 (09:55→20:38)
[2022-06-15 11:58] LABS: Influenza A PCR Negative (Negative); Influenza B PCR Negative (Negative); Resp. Syncytial Virus PCR Negative (Negative)
[2022-06-15 12:00] LABS: SARS-CoV-2 by PCR (In House) Negative (Negative)
[2022-06-15] MEDS: Aspirin Enteric Coated 81 MG Tablet PO SCH (13:25)
[2022-06-15] MEDS: Ascorbic Acid 500 MG TABLET PO SCH (13:25)
[2022-06-15] MEDS: clonazePAM 0.5 MG TABLET PO PRN ×2 (13:25→20:41)
[2022-06-15] MEDS: Cholecalciferol (D-3) 1,000 UNIT (25MCG) TABLET PO SCH (13:25)
[2022-06-15] MEDS: ARIPiprazole 5 MG TABLET PO SCH (20:38)
[2022-06-15] MEDS: tiZANidine 4 MG TABLET PO PRN (20:41)
[2022-06-16 01:53] LABS: Basophils % 0.1 %; Hematocrit 44.3 % (35.3-44.9); Hemoglobin 14.7 g/dL (11.5-15.4); Immature Granulocytes % 0.8 % (0-4); Lymphocytes # 0.6 K/mcL (0.6-4.6); Lymphocytes % 6.2 %; Mean Corpuscular HGB Conc 33.2 g/dL (31.6-35.5); Mean Corpuscular Hemoglobin 30.4 pg (28.0-33.3); Mean Corpuscular Volume 91.5 fL (83.0-100.0); Mean Platelet Volume 10.9 fL (9.4-12.4); Monocytes # 0.6 K/mcL (0.0-1.3); Monocytes % 5.5 %; Neutrophils # 8.7 K/mcL (1.6-8.9); Platelet Count 158 K/mcL (140-400); Red Blood Count 4.84 M/mcL (3.82-4.97); Red Cell Distribution Width 13.3 % (11.5-14.5); Segmented Neutrophils % 87.4 %; White Blood Count 9.9 K/mcL (4.3-11.1)
[2022-06-16] MEDS: Levothyroxine 25 MCG TABLET PO SCH (05:32)
[2022-06-16] MEDS: *HR* Heparin 5,000 UNIT/ML VIAL SQ SCH ×3 (05:32→22:56)
[2022-06-16 07:00] LABS: Calcium 9.1 mg/dL (8.6-10.3); Potassium 3.9 mEq/L (3.5-5.1)
[2022-06-16] MEDS: Insulin LISPRO 300 UNITS/3 ML VIAL SUBQ SCH ×3 (08:22→15:41)
[2022-06-16] MEDS: Azithromycin 500 MG in 0.9 % Sodium Chloride 250 ML IVPB SCH (08:23)
[2022-06-16] MEDS: MethylPREDNISolone 40 MG/ML VIAL IVP SCH (08:24)
[2022-06-16] MEDS: Metoprolol XL (24 HR) Succ 50 MG TAB.ER.24H PO SCH (08:25)
[2022-06-16] MEDS: Aspirin Enteric Coated 81 MG Tablet PO SCH (08:25)
[2022-06-16] MEDS: Ascorbic Acid 500 MG TABLET PO SCH (08:25)
[2022-06-16] MEDS: Cholecalciferol (D-3) 1,000 UNIT (25MCG) TABLET PO SCH (08:25)
[2022-06-16] MEDS: hydroCHLOROthiazide 25 MG TABLET PO SCH (08:25)
[2022-06-16] MEDS: Lactobacillus 1 EACH CAP.SPRINK PO SCH ×2 (08:25→19:48)
[2022-06-16] MEDS: cefTRIAXone 1,000 MG in 0.9 % Sodium Chloride Mini Bag 100 ML IVPB SCH (09:48)
[2022-06-16] MEDS ORDERED: Insulin LISPRO 300 UNITS/3 ML VIAL SUBQ SCH (13:01)
[2022-06-16] MEDS: Insulin DETEMIR 100 UNIT/ML X5UNITS SUBQ SCH ×2 (13:46→19:50)
[2022-06-16] MEDS: clonazePAM 0.5 MG TABLET PO PRN (19:48)
[2022-06-16] MEDS: ARIPiprazole 5 MG TABLET PO SCH (19:48)
[2022-06-16] MEDS: tiZANidine 4 MG TABLET PO PRN (19:48)
[2022-06-17 01:56] LABS: Basophils % 0.3 %; Eosinophils % 0.5 %; Hemoglobin 15.3 g/dL (11.5-15.4); Immature Granulocytes % 1.3 % (0-4); Lymphocytes # 0.9 K/mcL (0.6-4.6); Lymphocytes % 22.5 %; Mean Corpuscular Hemoglobin 30.5 pg (28.0-33.3); Mean Corpuscular Volume 89.8 fL (83.0-100.0); Mean Platelet Volume 10.4 fL (9.4-12.4); Monocytes # 0.7 K/mcL (0.0-1.3); Monocytes % 17.4 %; Platelet Count 147 K/mcL (140-400); Red Blood Count 5.01 M/mcL (3.82-4.97); Red Cell Distribution Width 13.1 % (11.5-14.5); White Blood Count 3.9 K/mcL (4.3-11.1)
[2022-06-17 01:57] LABS: Neutrophils # 2.3 K/mcL (1.6-8.9)
[2022-06-17 02:17] LABS: Calcium 9.3 mg/dL (8.6-10.3)
[2022-06-17] MEDS: Levothyroxine 25 MCG TABLET PO SCH (06:14)
[2022-06-17] MEDS: *HR* Heparin 5,000 UNIT/ML VIAL SQ SCH (06:14)
[2022-06-17 07:44] VITALS: BP 177/93; PULSE 55; TEMP 98.1; O2SAT 99
[2022-06-17] MEDS: Azithromycin 500 MG in 0.9 % Sodium Chloride 250 ML IVPB SCH (07:48)
[2022-06-17] MEDS: Insulin LISPRO 300 UNITS/3 ML VIAL SUBQ SCH (08:15)
[2022-06-17] MEDS: Ascorbic Acid 500 MG TABLET PO SCH (09:05)
[2022-06-17] MEDS: Metoprolol XL (24 HR) Succ 50 MG TAB.ER.24H PO SCH (09:05)
[2022-06-17] MEDS: Aspirin Enteric Coated 81 MG Tablet PO SCH (09:05)
[2022-06-17] MEDS: hydroCHLOROthiazide 25 MG TABLET PO SCH (09:05)
[2022-06-17] MEDS: Cholecalciferol (D-3) 1,000 UNIT (25MCG) TABLET PO SCH (09:06)
[2022-06-17] MEDS: cefTRIAXone 1,000 MG in 0.9 % Sodium Chloride Mini Bag 100 ML IVPB SCH (09:06)
[2022-06-17] MEDS: MethylPREDNISolone 40 MG/ML VIAL IVP SCH (09:06)
[2022-06-17] MEDS: Lactobacillus 1 EACH CAP.SPRINK PO SCH (09:06)
== END 2022-06-17 11:15 | disposition home or self-care (01) | DRG 871 ==
LOC: EMEROOARM 08:42 → 3NENU 08:42 → SUATTDRO 12:05 → 3NENU 13:53
PROVIDERS: ADMIT Internal Medicine; ATTEND Hospitalist